=== PATIENT | male | born 1975 | race Caucasian/White ===

== ENCOUNTER 2017-12-17 02:28 | Emergency (ER) | payer OTHER, BC ==
[2017-12-17] MEDS ORDERED: Lidocaine 1% 10 ML MDV INJECT ONE (03:05)
--- NOTE | 2017-12-17 03:10 | EDM.PDOC ---
ED HPI GENERAL MEDICAL PROBLEM - General Chief Complaint: Laceration Stated Complaint: CUT ON RIGHT PINKY FINGER Time Seen by Provider: 12/17/17 03:00 - History of Present Illness INITIAL COMMENTS - FREE TEXT/NARRATIVE: HISTORY AND PHYSICAL: History of present illness: Patient is a 42-year-old male who is up-to-date on his tetanus and presents with a crush injury to his right fifth digit that occurred while at work. 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 He is able to move the digit and he has no other complaints to his other fingers or the remainder of the right hand. There are no other injuries and prior to these events at work he was in his usual state of good health. Review of systems: As per history of present illness and below otherwise all systems reviewed and negative. Past medical history: As per history of present illness and as reviewed below otherwise noncontributory. Surgical history: As per history of present illness and as reviewed below otherwise noncontributory. Social history: No reported history of drug or alcohol abuse. Family history: As per history of present illness and as reviewed below otherwise noncontributory. Physical exam: : Well-developed well-nourished man who is nontoxic and vital signs are reviewed by me HEENT: Atraumatic, normocephalic, negative for conjunctival pallor or scleral icterus, mucous membranes moist, throat clear, neck supple, nontender, trachea midline. Lungs: Clear to auscultation, breath sounds equal bilaterally, chest nontender. Heart: S1S2, regular and rhythm no overt murmurs Abdomen: Soft, nondistended, nontender. NABS Pelvis: Deferred Genitourinary: Deferred. Rectal: Deferred. Extremities: Atraumatic full range of motion of all extremities with the exception of the right fifth digit where there is a 2.5 Jagged irregular laceration seen on the palmar surface of the finger along the proximal and middle phalanx just extending across the PIP flexure area. The tissue is very contused. The patient is able to flex against resistance and there are no other injury on the remainder of the fingers or the hand. The nailbed is intact and the wound is complicated due to the depth and the contused tissue. Neurovascular unremarkable. Neuro: Awake, alert, oriented. Cranial nerves II through XII unremarkable. Cerebellum unremarkable. Motor and sensory unremarkable throughout. Exam nonfocal. Diagnostics: X-ray right fifth finger Therapeutics: Wound care Ancef lidocaine without epinephrine Procedure note: After the procedure was explained to the patient a 1% lidocaine without epinephrine digital block was placed and the wound was prepped and draped in sterile fashion. The wound was explored and no foreign bodies were appreciated. The patient was able to flex against resistance on this repeat evaluation. The skin edges were reapproximated using a total number of # 7 sutures of 4-0 nylon in a simple interrupted fashion. The patient tolerated the procedure well and there were no complications. Bacitracin and a tube gauze dressing were placed. The wound was of moderate complexity. The patient is aware that the tissue is very contused and jagged. Impression: Crush injury of right fifth digit with laceration Definitive disposition and diagnosis as appropriate pending reevaluation and review of above. right little finger Pain Score (Numeric/FACES): 1 - Related Data Allergies Allergy/AdvReac Type Severity Reaction Status Date / Time No Known Allergies Allergy Verified 12/17/17 02:49 Home Meds: Home Meds . [No Known Home Meds] 12/17/17 [History] Past Medical History - Past Health History Medical/Surgical History: Denies Medical/Surgical History Social & Family History - Family History Family Medical History: Noncontributory Cardiac: Reports: Stent - Tobacco Use Smoking Status *Q: Current Every Day Smoker Years of Tobacco use: 20 Packs/Tins Daily: 1 - Recreational Drug Use Recreational Drug Use: No ED ROS GENERAL - Review of Systems Review Of Systems: ROS reveals no pertinent complaints other than HPI. ED EXAM, SKIN/RASH Exam: See Below (see dictation) Course - Vital Signs Last Recorded V/S: Last Vital Signs Temp 36.6 C 12/17/17 02:28 Pulse 78 12/17/17 02:28 Resp 18 12/17/17 02:28 BP 131/87 12/17/17 02:28 Pulse Ox 97 12/17/17 02:28 - Orders/Labs/Meds Orders: Active Orders 24 hr Category Date Time Status Fingers Fifth Digit Rt F9 [CR] Stat Exams 12/17/17 03:05 Taken Meds: Medications Discontinued Medications Generic Name Dose Route Start Last Admin Trade Name Freluna PRN Reason Stop Dose Admin Bacitracin Confirm 12/17/17 03:57 12/17/17 04:01 Bacitracin Oint 1 Gm Administered 12/17/17 03:58 1 dose Dose Administration 1 dose .ROUTE .STK-MED ONE Cephalexin 500 mg 12/17/17 03:28 12/17/17 04:01 Keflex PO 12/17/17 03:29 500 mg ONETIME ONE Administration Lidocaine HCl Confirm 12/17/17 03:15 12/17/17 04:02 Xylocaine-Mpf 1% Administered 12/17/17 03:16 10 mls/hr Dose Administration 10 mls @ as directed .ROUTE .STK-MED ONE Lidocaine HCl 10 ml 12/17/17 03:05 Xylocaine 1% INJECT 12/17/17 03:06 ONETIME ONE Departure - Departure Time of Disposition: 04:15 Disposition: Home, Self-Care 01 Condition: Good Clinical Impression: Crushing injury of finger of right hand Laceration of finger Qualifiers: Encounter type: initial encounter Finger: little finger Damage to nail status: without damage Foreign body presence: without foreign body Laterality: right Qualified Code(s): S61.216A - Laceration without foreign body of right little finger without damage to nail, initial encounter - Discharge Information Referrals: PCP,None [Primary Care Provider] - Forms: ED Department Discharge Additional Instructions: The following information is given to patients seen in the emergency department who are being discharged to home. This information is to outline your options for follow-up care. We provide all patients seen in our emergency department with a follow-up referral. The need for follow-up, as well as the timing and circumstances, are variable depending upon the specifics of your emergency department visit. If you don't have a primary care physician on staff, we will provide you with a referral. We always advise you to contact your personal physician following an emergency department visit to inform them of the circumstance of the visit and for follow-up with them and/or the need for any referrals to a consulting specialist. The emergency department will also refer you to a specialist when appropriate. This referral assures that you have the opportunity for followup care with a specialist. All of these measure are taken in an effort to provide you with optimal care, which includes your followup. Under all circumstances we always encourage you to contact your private physician who remains a resource for coordinating your care. When calling for followup care, please make the office aware that this follow-up is from your recent emergency room visit. If for any reason you are refused follow-up, please contact the [facility] emergency department at and ask to speak to the emergency department charge nurse. [facility] Professional Building [address] [place] [phone] Please keep dressing that was placed today in the emergency department on for the next 24 hours. After that timeframe remove the dressing and wash the area with mild soap and water pat dry and apply bacitracin or Neosporin. If you need to cover the area please use gauze and did not place Band-Aids on the wound. The sutures should be removed in 7 days by our hand specialist and the wound needs to be reevaluated by her as well. Please contact the clinic tomorrow for a follow-up appointment. If you're unable to go to the clinic you may return to the ED in 7 days for suture removal. You have been given a prescription for Keflex and please take that until it is finished. Use [id number] Tylenol or ibuprofen for pain. Return to ER as needed and as discussed - My Orders Last 24 Hours: My Active Orders 12/17/17 03:05 Fingers Fifth Digit Rt F9 [CR] Stat - Assessment/Plan Last 24 Hours: My Active Orders 12/17/17 03:05 Fingers Fifth Digit Rt F9 [CR] Stat
[2017-12-17] MEDS ORDERED: Cephalexin 500 MG Cap PO ONE (03:28)
[2017-12-17] MEDS ORDERED: Bacitracin Oint 1 GM U/D Packet ONE (03:57)
--- NOTE | 2017-12-17 17:32 | CR ---
EXAM DATE: 12/17/17 PATIENT'S AGE: 42 Patient: YADIRA VILLARREAL Facility: [place], [place] Site . Site : [id number] Study: XRay Extremity Right [id number]/25/2018 3:21:06 AM Ordering Physician: Aurelia Bourgeois Final Report: INDICATION: Finger injury TECHNIQUE: Finger radiograph 3 views right 5th COMPARISON: None FINDINGS: Bones: A small corticated ossicle is seen near the base of the 5th metacarpal. This may be due to prior injury. No acute osseous injuries are identified. Joints: The metacarpophalangeal and interphalangeal joints are normal in appearance. Soft tissues: Unremarkable. No radiopaque foreign bodies are seen. IMPRESSION: 1. No acute osseous injuries or abnormalities are noted. Dictated by Elder Heaton MD @ 12/17/2017 3:24:10 AM Dictated by: Elder Heaton MD @ 12/17/2017 03:24:18 (Electronic Signature) Report Signed by Proxy. FLORENTINO
== END 2017-12-17 04:33 | disposition home or self-care (01) ==
LOC: MW.ED 02:28
DX: S67.196A Crushing injury of right little finger, initial encounter (principal); S61.216A Laceration without foreign body of right little finger without damage to nail, initial encounter; W23.1XXA Caught, crushed, jammed, or pinched between stationary objects, initial encounter; F17.210 Nicotine dependence, cigarettes, uncomplicated; Y99.0 Civilian activity done for income or pay
CPT/HCPCS: 12001; 73140; 99283; A9270